=== PATIENT | male | born 1940 | race Caucasian/White ===

== ENCOUNTER 2024-03-23 13:34 | Outpatient (CLI) | payer MEDICARE | END 2024-03-23 13:35 | disposition home or self-care (01) | LOC: MRI 13:34 | PROVIDERS: ATTEND Otolaryngology | DX: H90.A21 Sensorineural hearing loss, unilateral, right ear, with restricted hearing on the contralateral side (principal); I67.89 Other cerebrovascular disease | CPT/HCPCS: 70553; 76376 ==